=== PATIENT | male | born 1945 | race Caucasian/White ===

== ENCOUNTER 2020-01-24 17:21 | Inpatient (IN) | payer MEDICARE ==
[~2020-01-24] VITALS: Ht 172.7 cm; Wt 83.9 kg
[2020-01-24] MEDS ORDERED: IV NS 0.9% 500 ML BAG IV ONE (17:30)
[2020-01-24 17:45] LABS: BASOPHILS # (AUTO) 0.1 /CMM (0.0-0.2); BASOPHILS % (AUTO) 1.7 % (0.0-2.0); EOSINOPHILS % (AUTO) 0.6 % (0.0-6.0); HEMATOCRIT 27 % (39-51); HEMOGLOBIN 8.3 g/dL (13.5-17.5); LYMPHOCYTES # (AUTO) 1.3 /CMM (0.8-4.8); LYMPHOCYTES % (AUTO) 18.2 % (20.0-44.0); MEAN CORPUSCULAR HGB CONC 31 g/dl (31.0-36.0); MEAN CORPUSCULAR VOLUME 115 fL (80-96); MONOCYTES # (AUTO) 1.2 /CMM (0.1-1.30); MONOCYTES % (AUTO) 16.9 % (2.0-12.0); NEUTROPHILS # (AUTO) 4.3 /CMM (1.8-8.9); NEUTROPHILS % (AUTO) 62.6 % (43.0-81.0); PLATELET COUNT (AUTO) 220 /CMM (150-450); RED BLOOD CELL COUNT(AUTO) 2.31 MIL/uL (4.5-6.0); WHITE BLOOD COUNT (AUTO) 6.9 K/uL (4.3-11.0)
--- NOTE | 2020-01-24 17:46 | NUR ---
SEE FROM HOME TO ER BED 9. AAOX4. NOT IN RESP DISTRESS, BREATHING EVEBN AND UNLABORED. BROUGHT IN FOR A GLF. PER PT, HE WAS WALKINGHIS DOG ON THE BACKYARD, TRIPPED AND FELL. PT DENIES LOC NOT HITTING HIS HEAD, HE CLAIMS THAT HE KNELT DOWN AND COULDN'T GET UP. DENIES ANY PAIN AT HIS TIME. NOTED BILAT KNEE ABRASSION. WAS REPORTED TO HAVE SBP LOWEST IN THE 80'S, GIVEN 500ML NS ENROUTE TO ER, SBP REPORTED 120S. HOWEVER, PT'S SBP GOES DOWN WHEN HE WAS SAT DOWN FROM LYING. WAS AT BEDSIDE FOR EVAL. ORDERS RECEIVED NOTED AND CARRIED OUT. IV LINE PRESENT UPON ARRIVAL, RFA 18G, BLOO DRAWN AND GIVEN TO ALMOND BLANCHER HAND.
--- NOTE | 2020-01-24 17:51 | NUR ---
PT TO RADIOLOGY ON [facility]
[2020-01-24 17:55] LABS: CALCIUM, SERUM 7.7 mg/dL (8.5-10.1); CARBON DIOXIDE 17 mmol/L (21-32); CHLORIDE 103 mmol/L (98-107); CREATININE 2.2 mg/dL (0.6-1.3); GLUCOSE 135 mg/dL (74-106); POTASSIUM 4.8 mmol/L (3.5-5.1); SODIUM SERUM 135 mmol/L (136-145); UREA NITROGEN, BLOOD 17 mg/dL (7-18)
[2020-01-24 18:01] LABS: ALANINE AMINOTRANSFERASE 33 U/L (12-78); ALBUMIN 2.7 g/dL (3.4-5.0); ALKALINE PHOSPHATASE 231 U/L (46-116); ASPARTATE AMINOTRANSFERASE 59 U/L (15-37); BILIRUBIN,DIRECT 0.4 mg/dL (0.0-0.2); BILIRUBIN,TOTAL 0.6 mg/dL (0.2-1.0); TOTAL PROTEIN, SERUM 5.5 g/dL (6.4-8.2)
[2020-01-24] MEDS ORDERED: METO25TA4 MT (18:10)
[2020-01-24] MEDS ORDERED: PRAV10TA40 MT (18:10)
[2020-01-24] MEDS ORDERED: RIFA550T MT (18:10)
[2020-01-24] MEDS ORDERED: LEVO25TA9 MT (18:10)
[2020-01-24] MEDS ORDERED: ZINC1CAP2 MT (18:10)
[2020-01-24] MEDS ORDERED: NIFE30TA91 MT (18:10)
--- NOTE | 2020-01-24 18:14 | NUR ---
Angie () - [phone] call for any updates
[2020-01-24 18:31] LABS: EOSINOPHILS % (MANUAL) 2 % (0-4); LYMPHOCYTES % (MANUAL) 14 % (16-48); MONOCYTES % (MANUAL) 15 % (0-11.0); NEUTROPHILS % (MANUAL) 68 (42-76); REACTIVE LYMPHOCYTES 1 % (0-0)
--- NOTE | 2020-01-24 18:37 | NUR ---
informed that pt is goiong to be admitted.
--- NOTE | 2020-01-24 19:35 | NUR ---
PT ASSESSED. AAOX4, NO MEDICAL COMPLAINTS AT THIS TIME. DENIES ANY PAIN. NOTED REDNESS ON R KNEE. WILL CONTINUE TO MONITOR
--- NOTE | 2020-01-24 19:52 | NUR ---
RADHA MORE VESSEL MANAGER AT BEDSIDE
[2020-01-24] MEDS ORDERED: ACETAMINOPHEN 325 MG TABLET PO PRN (20:00)
[2020-01-24] MEDS ORDERED: LORAZEPAM INJ 2 MG/ML VIAL IV PRN (20:00)
[2020-01-24] MEDS ORDERED: MORPHINE SULFATE INJ 2 MG/ML DISP.SYRIN IV PRN (20:00)
--- NOTE | 2020-01-24 20:38 | NUR ---
REPORT GIVEN TO ICU FOR KARINA
[2020-01-24] MEDS: IV NS 0.9% 1,000 ML IV PRN (20:54)
--- NOTE | 2020-01-24 20:58 | NUR ---
PT TRANSFERRED TO ROOM VIA ACLS PROTOCOL
--- NOTE | 2020-01-24 21:20 | NUR ---
FILTER PRESS TENDER HEAD NOTES - EKG NO EKG DONE IN ER. CONNECTED TO MARKET DEVELOPMENT TRAINER, APPEARS TO BE AFIB. STAT EKG ORDERED BY ARGENIS DAVIS.
[2020-01-24] MEDS: LEVETIRACETAM (500MG) 500 MG in IV NS 0.9% 100 ML IV SCH (21:29)
[2020-01-24 22:00] VITALS: BP 174/40
--- NOTE | 2020-01-24 22:05 | NUR ---
RN NOTES CALLED AND SPOKE WITH ALLY DAVIS REGARDING PATIENT EKG RESULT A-FIB, PATIETN IS ASYMPTOMATIC AND NO HISTORY OF IT. PER METAL DEALER TO MONITOR PATIENT AND TO CONSULT WITH DR. KNOTT IN AM. NOTED AND CARRIED OUT ORDER.
[2020-01-24 22:15] VITALS: BP 161/79
[2020-01-24 22:30] VITALS: BP 149/87
[2020-01-24 23:00] VITALS: BP 142/71
--- NOTE | 2020-01-24 23:00 | NUR ---
RN NOTES ADMITTED PATIENT FROM E.R, AWAKE ALERT ORIENTED X 3 VERBALIZED WHAT HAPPEN TO HIM. NO APPARENT RESPIRATORY DISTRESS. PATIENT ON ROOM AIR SATURATION 98%. PLACED ON TELE MONITOR REVEALS A-FIB CONFIRMED IT WITH EKG DENIES ANY PAIN. PATIENT IS ABLE TO LIFT BUE AND BLE WITHOUT DRIFTING. NEURO CHECK, NEURO ASSESSMENT DONE. PT DIAGNOSED WITH SUBARACHNOID HEMORRHAGE CLOSELY MONITOR FOR ANY WEAKNESS OR SIGNIFICANT CHANGES EDUCATION FOR STROKE PROVIDED. KEPT PT CLEAN AND DRY. SWALLOW EVAL PROVIDED WITHOUT ASPIRATION SHOWS. WILL CONTINUE TO MONITOR.
[2020-01-24 23:30] VITALS: BP 154/68
[2020-01-25] VITALS (19 sets, daily range): BP systolic 124–182; BP diastolic 40–88
[2020-01-25] MEDS: hydrALAZINE HCL IV 20 MG VIAL IV PRN ×4 (02:06→14:35)
[2020-01-25 04:24] LABS: BASOPHILS # (AUTO) 0.1 /CMM (0.0-0.2); BASOPHILS % (AUTO) 1.4 % (0.0-2.0); EOSINOPHILS % (AUTO) 1.2 % (0.0-6.0); HEMATOCRIT 28 % (39-51); HEMOGLOBIN 8.8 g/dL (13.5-17.5); LYMPHOCYTES # (AUTO) 1.6 /CMM (0.8-4.8); LYMPHOCYTES % (AUTO) 22.2 % (20.0-44.0); MEAN CORPUSCULAR HGB CONC 32 g/dl (31.0-36.0); MEAN CORPUSCULAR VOLUME 111 fL (80-96); MONOCYTES # (AUTO) 1.2 /CMM (0.1-1.30); NEUTROPHILS # (AUTO) 4.2 /CMM (1.8-8.9); NEUTROPHILS % (AUTO) 58.2 % (43.0-81.0); PLATELET COUNT (AUTO) 189 /CMM (150-450); RED BLOOD CELL COUNT(AUTO) 2.48 MIL/uL (4.5-6.0); WHITE BLOOD COUNT (AUTO) 7.1 K/uL (4.3-11.0)
[2020-01-25 04:37] LABS: CALCIUM, SERUM 7.8 mg/dL (8.5-10.1); CARBON DIOXIDE 19 mmol/L (21-32); CHLORIDE 106 mmol/L (98-107); CREATININE 1.9 mg/dL (0.6-1.3); GLUCOSE 101 mg/dL (74-106); POTASSIUM 4.7 mmol/L (3.5-5.1); SODIUM SERUM 137 mmol/L (136-145); UREA NITROGEN, BLOOD 15 mg/dL (7-18)
[2020-01-25 04:45] LABS: CHOLESTEROL 141 mg/dL (<200); HDL CHOLESTEROL 37 mg/dL (40-60); LDL 77 mg/dL (0-99); TRIGLYCERIDES 142 mg/dL (30-150)
[2020-01-25 05:37] LABS: LYMPHOCYTES % (MANUAL) 18 % (16-48); MONOCYTES % (MANUAL) 12 % (0-11.0); NEUTROPHILS % (MANUAL) 70 (42-76)
--- NOTE | 2020-01-25 07:00 | NUR ---
RN NOTES PATIENT REMAINED STABLE. DENIES PAIN ASLEEP WELL AT NIGHT. AFEBRILE. NO N/V. NO APPARENT RESP. DISTRESS IN ROOM AIR. TELE MONITOR REVEALS IN AND OUT AFIB AND FIRST DEGREE AVB IWTH PVC'S. HYPERTENSION PRESENT PT. IS ASYMPTOMATIC. DENIES DIZZINESS. REMAINED AOX3 WITH PERIODS OF FORGETFUL. B.E.F.A.S.T ASSESSMENT DONE NO DEFICIT NOTED. KEPT PT CLEAN AND DRY. ASSISTED TO COMMODE AND ADLS. WILL CONTINUE POC. ENDORSED CONTINUITY OF CARE TO AM NURSE.
--- NOTE | 2020-01-25 07:29 | NUR ---
RN OPENING NOTES RECEIVED PATIENT RESTING IN BED. A/O X4, ON ROOM AIR WITH NO ACUTE DISTRESS NOTED. BREATHING IS EVEN AND UNLABORED. ON TELE MONITOR WITH 1ST DEGREE AV BLOCK NOTED, DR KNOTT IS AWARE. PATIENT IS REFUSING BREAKFAST AT THE MOMENT. NO COMPLAINS OF HEADACHE OR DIZZINESS, ABLE TO MOVE ALL EXTREMITIES, NO SIGNS OF STROKE NOTED. IV ACCESS ON RIGHT HAND #22 AND LEFT FOREARM #22 INTACT, PATENT, AND FLUSHED WELL. IV FLUIDS RUNNING ORDERED. SAFETY MAINTAINED, CALL LIGHT WITHIN REACH, WILL CONTINUE TO MONITOR CLOSELY.
[2020-01-25] MEDS: PANTOPRAZOLE 40 MG VIAL IV SCH (08:59)
[2020-01-25] MEDS: LEVETIRACETAM (500MG) 500 MG in IV NS 0.9% 100 ML IV SCH ×2 (08:59→21:06)
[2020-01-25] MEDS: IV NS 0.9% 1,000 ML IV PRN (10:19)
--- NOTE | 2020-01-25 13:04 | NUR ---
RN NOTE CONFIRMED WITH RADIOLOGY THAT THE PATIENT HAS AN ORDER FOR CT SCAN OF HEAD. THEY ARE AWARE, CURRENTLY BUSY WITH A PROCEDURE AND WILL DO THE CT SCAN SOON AT THEY ARE DONE WITH THE PROCEDURE. SAFETY MAINTAINED, CALL LIGHT WITHIN REACH, WILL CONTINUE TO MONITOR CLOSELY.
[2020-01-25] MEDS: RIFAXIMIN 550 MG TABLET PO SCH (17:00)
--- NOTE | 2020-01-25 17:29 | NUR ---
RN NOTE PATIENT TRANSFERRED TO TELE 1 PER MD ORDER. TRANFERRED USING ACLS PROTOCOL, PATIENT IN STABLE CONDITION, NO ACUTE CHANGES TO PATIENT CONDITION. COVID SWAB OBTAINED, URINE COLLECTED AND SENT TO LAB. BELONGINGS SENT WITH THE PATIENT, CALL LIGHT WITHIN REACH, SAFETY MAINTAINED, WILL CONTINUE TO MONITOR CLOSELY.
[2020-01-25 18:19] LABS: APPEARANCE,URINE HAZY (CLEAR); BILIRUBIN,URINE NEGATIVE (NEGATIVE); BLOOD, URINE NEGATIVE Ery/uL (NEGATIVE); COLOR,URINE DARK YELLOW (YELLOW); KETONES,URINE NEGATIVE (NEGATIVE); LEUKOCYTE ESTERASE ,URINE TRACE (NEGATIVE); NITRITE, URINE NEGATIVE (NEGATIVE); PROTEIN,URINE NEGATIVE (NEGATIVE); UGLUCOSE NEGATIVE (NEGATIVE); UROBILINOGEN,URINE 0.2 EU/dL (0.2)
[2020-01-25 18:26] LABS: CREATININE, URINE 106.9 MG/DL (30.0-125.0)
[2020-01-25 18:31] LABS: BACTERIA,URINE Few /HPF (None Seen); RBC,URINE 0-2 /HPF (0-2); SQUAMOUS EPITHELIAL CELL,UR Few /HPF (None Seen)
[2020-01-25 19:53] LABS: EOSINOPHIL,URINE None Seen
[2020-01-26] VITALS: BP 174/67
[2020-01-26] MEDS: hydrALAZINE HCL IV 20 MG VIAL IV PRN ×2 (00:44→08:26)
[2020-01-26] MEDS ORDERED: ZOLPIDEM TARTRATE 5 MG TABLET PO PRN (01:10)
[2020-01-26] MEDS: IV NS 0.9% 1,000 ML IV PRN (01:16)
[2020-01-26 04:00] VITALS: BP 156/60
[2020-01-26 07:15] LABS: BASOPHILS # (AUTO) 0.1 /CMM (0.0-0.2); BASOPHILS % (AUTO) 1.1 % (0.0-2.0); HEMATOCRIT 25 % (39-51); HEMOGLOBIN 8.1 g/dL (13.5-17.5); LYMPHOCYTES # (AUTO) 1.4 /CMM (0.8-4.8); MEAN CORPUSCULAR HGB CONC 32 g/dl (31.0-36.0); MEAN CORPUSCULAR VOLUME 111 fL (80-96); MONOCYTES # (AUTO) 1.2 /CMM (0.1-1.30); MONOCYTES % (AUTO) 20.8 % (2.0-12.0); NEUTROPHILS # (AUTO) 2.9 /CMM (1.8-8.9); NEUTROPHILS % (AUTO) 51.1 % (43.0-81.0); PLATELET COUNT (AUTO) 141 /CMM (150-450); RED BLOOD CELL COUNT(AUTO) 2.27 MIL/uL (4.5-6.0); WHITE BLOOD COUNT (AUTO) 5.7 K/uL (4.3-11.0)
[2020-01-26 07:30] LABS: ALANINE AMINOTRANSFERASE 32 U/L (12-78); ALBUMIN 2.5 g/dL (3.4-5.0); ALKALINE PHOSPHATASE 215 U/L (46-116); ASPARTATE AMINOTRANSFERASE 51 U/L (15-37); BILIRUBIN,TOTAL 1.8 mg/dL (0.2-1.0); CALCIUM, SERUM 7.5 mg/dL (8.5-10.1); CARBON DIOXIDE 21 mmol/L (21-32); CHLORIDE 106 mmol/L (98-107); CREATININE 1.8 mg/dL (0.6-1.3); GLUCOSE 90 mg/dL (74-106); MAGNESIUM 1.7 mg/dL (1.8-2.4); PHOSPHORUS 3.2 mg/dL (2.5-4.9); POTASSIUM 4.9 mmol/L (3.5-5.1); SODIUM SERUM 136 mmol/L (136-145); TOTAL PROTEIN, SERUM 5.3 g/dL (6.4-8.2); UREA NITROGEN, BLOOD 15 mg/dL (7-18)
[2020-01-26 07:39] LABS: CREATINE KINASE, TOTAL 36 U/L (39-308)
[2020-01-26 08:00] VITALS: BP 182/69
--- NOTE | 2020-01-26 08:00 | NUR ---
Tele/RN - Assessment Patient in bed, A/O x 4, denies pain, stable on room air, afebrile overnight, no c/o headache or dizziness, tele shows A.Fib controlled HR 78. IVF NS at 75 ml/hr infusing well on the left hand with no complications. Labs reviewed noted with Mg 1.7, will notify MD for replacement. Covid result is still pending. Droplet and contact precautions maintained. All needs attended. Fall precautions implemented. Will continue with current plan of care.
[2020-01-26] MEDS: RIFAXIMIN 550 MG TABLET PO SCH ×2 (08:23→16:19)
[2020-01-26] MEDS: PANTOPRAZOLE 40 MG VIAL IV SCH (08:23)
[2020-01-26 08:52] LABS: LYMPHOCYTES % (MANUAL) 17 % (16-48); MONOCYTES % (MANUAL) 21 % (0-11.0); NEUTROPHILS % (MANUAL) 62 (42-76)
[2020-01-26] MEDS ORDERED: ZINC SULFATE 220 MG CAPSULE PO SCH (09:00)
[2020-01-26] MEDS ORDERED: LEVOTHYROXINE SODIUM 25 MCG TABLET PO SCH (09:00)
[2020-01-26] MEDS ORDERED: METOPROLOL SUCCINATE 25 MG TAB.SR.24H PO SCH (09:00)
--- NOTE | 2020-01-26 09:00 | NUR ---
Tele/RN - Notes Per danette NAVARRO to d/c telemetry and transfer to med-surg status.
[2020-01-26] MEDS ORDERED: Magnesium 1GM/D5W 100ML PREMIX 100 ML IV SCH (09:56)
[2020-01-26 10:00] VITALS: BP 141/65
[2020-01-26] MEDS: LEVETIRACETAM (500MG) 500 MG in IV NS 0.9% 100 ML IV SCH (10:20)
--- NOTE | 2020-01-26 11:00 | NUR ---
MS/RN - Notes Patient c/o of several episodes of loose watery stools. Dr. Stahl made aware with order to give Imodium 2 mg po Q4H PRN.
[2020-01-26] MEDS: LOPERAMIDE HCL (2 MG CAP) 2 MG CAPSULE PO PRN ×2 (11:33→16:20)
[2020-01-26 12:00] VITALS: BP 152/78
[2020-01-26 16:00] VITALS: BP 158/63
--- NOTE | 2020-01-26 17:02 | NUR ---
MS/RN - Discharge Patient is alert and oriented, afebrile, denies pain, no c/o weakness or dizziness, no further episode of loose stool, magnesium replacement given. Patient discharge home in stable condition. Reviewed discharge instructions with patient and he verbalized full understanding including f/u care with his PCP in 1 week and to resume home medications as ordered. Patient refused discharge pictures to be taken. All belongings returned and he deny any missing items. Saline lock removed on the RFA and left hand. Discharge papers given. Accompanied to the lobby via wheelchair and transported by private car by Angie.
[2020-01-26] MEDS ORDERED: LEVETIRACETAM (250 MG) 250 MG TABLET PO SCH (21:00)
[2020-01-27 07:15] LABS: PTH, INTACT 93 pg/mL (15-65)
[2020-01-27 15:07] LABS: *SPE A/G RATIO 1.1 (0.7-1.7); *SPE ALBUMIN 2.5 g/dL (2.9-4.4); *SPE ALPHA-1-GLOBULIN 0.2 g/dL (0.0-0.4); *SPE ALPHA-2-GLOBULIN 0.5 g/dL (0.4-1.0); *SPE BETA GLOBULIN 0.6 g/dL (0.7-1.3); *SPE GLOBULIN, TOTAL 2.3 g/dL (2.2-3.9); *SPE M-SPIKE Not Observed g/dL (Not Observed)
== END 2020-01-26 16:55 | disposition home or self-care (01) | DRG 85 ==
LOC: ER 17:25 → ICU 19:49 → TELE1 01-25 16:30
PROVIDERS: ADMIT Nurse Practitioner Acute Care; ATTEND Internal Medicine
DX: S06.5X0A Traumatic subdural hemorrhage without loss of consciousness, initial encounter (principal); N17.0 Acute kidney failure with tubular necrosis; W18.39XA Other fall on same level, initial encounter; Y92.89 Other specified places as the place of occurrence of the external cause; R40.2362 Coma scale, best motor response, obeys commands, at arrival to emergency department; R40.2142 Coma scale, eyes open, spontaneous, at arrival to emergency department; R40.2252 Coma scale, best verbal response, oriented, at arrival to emergency department; R74.0 Nonspecific elevation of levels of transaminase and lactic acid dehydrogenase [LDH]; K70.9 Alcoholic liver disease, unspecified; N18.9 Chronic kidney disease, unspecified; D53.9 Nutritional anemia, unspecified; E03.9 Hypothyroidism, unspecified; I12.9 Hypertensive chronic kidney disease with stage 1 through stage 4 chronic kidney disease, or unspecified chronic kidney disease; E78.5 Hyperlipidemia, unspecified; E66.9 Obesity, unspecified; Z68.29 Body mass index [BMI] 29.0-29.9, adult; D63.1 Anemia in chronic kidney disease; Z86.73 Personal history of transient ischemic attack (TIA), and cerebral infarction without residual deficits; E86.0 Dehydration; K74.60 Unspecified cirrhosis of liver; N13.9 Obstructive and reflux uropathy, unspecified; R29.6 Repeated falls
CPT/HCPCS: 36415; 70450-TC; 71045-TC; 76770-TC; 80048-TC; 80053-TC; 80061-TC; 80076-TC; 81000-TC; 82550-TC; 82570-TC; 83735-TC; 83970; 84100-TC; 84155; 84155-TC; 84165; 84300-TC; 84439-TC; 84443-TC; 84484-TC; 85025-TC; 85730-TC; 86850-TC; 87081-TC; 92611-TC; 97116-TC; 97530-TC; C9113; G0378; J0360; J1953; J3475; J7030; J7040; U0003-CS